=== PATIENT | male | born 1970 | race Two or more races ===

== ENCOUNTER 2020-11-25 20:19 | Inpatient (IN) | payer OTHER ==
[~2020-11-25] VITALS: Ht 170.2 cm; Wt 99.8 kg
[2020-11-25 21:13] LABS: HEMOGLOBIN 15.2 gm/dl (14.0-17.5); RED BLOOD COUNT 5.49 M/UL (4.20-5.50); WHITE BLOOD COUNT 7.5 K/UL (4.5-11.0)
[2020-11-25 21:34] LABS: BUN/CREATININE RATIO 14 (0-10)
[2020-11-26] MEDS ORDERED: LOSARTAN POTAS100 MG PO (00:52)
[2020-11-26] MEDS ORDERED: AMLODIPINE BESY10 MG PO (00:52)
[2020-11-26] MEDS ORDERED: LOPRESSOR 50 MG50 MG PO (00:53)
[2020-11-26 05:13] LABS: BUN/CREATININE RATIO 13 (0-10)
[2020-11-26 05:16] LABS: HEMOGLOBIN 15.2 gm/dl (14.0-17.5); RED BLOOD COUNT 5.57 M/UL (4.20-5.50)
[2020-11-27 04:09] LABS: HEMOGLOBIN 14.7 gm/dl (14.0-17.5); RED BLOOD COUNT 5.28 M/UL (4.20-5.50)
[2020-11-27 04:13] LABS: WHITE BLOOD COUNT 11.8 K/UL (4.5-11.0)
[2020-11-27 04:57] LABS: BUN/CREATININE RATIO 22 (0-10)
[2020-11-28 03:28] LABS: HEMOGLOBIN 15.9 gm/dl (14.0-17.5); RED BLOOD COUNT 5.75 M/UL (4.20-5.50); WHITE BLOOD COUNT 11.8 K/UL (4.5-11.0)
[2020-11-28 03:59] LABS: BUN/CREATININE RATIO 22 (0-10)
[2020-11-29 03:59] LABS: HEMOGLOBIN 15.1 gm/dl (14.0-17.5); RED BLOOD COUNT 5.49 M/UL (4.20-5.50); WHITE BLOOD COUNT 9.9 K/UL (4.5-11.0)
[2020-11-29 04:12] LABS: BUN/CREATININE RATIO 19 (0-10)
--- NOTE | 2020-11-29 07:48 | NUR ---
OXYGEN REMOVED FROM PT, PT AMBULATED TO BATHROOM AND BACK, ONCE RETURNING FROM BATHROOM BEFORE APPLYING O2 OXYGEN LEVEL 83%, O2 REAPPLIED ORDERED
[2020-11-30] MEDS ORDERED: DECADRON IM/I4 MG/ML PO (16:00)
[2020-11-30] MEDS ORDERED: CEFUROXIME250 MG PO (16:00)
[2020-11-30] MEDS ORDERED: DECADRON6 MG PO (16:09)
== END 2020-11-30 17:18 | disposition home or self-care (01) | DRG 871 ==
LOC: ER1 20:19 → MED SURG 4 11-26 00:18 → CDU 11-26 00:18 → MED SURG 4 11-26 01:07
PROVIDERS: Family Medicine; Internal Medicine; ADMIT Family Medicine
PROC: 8E0ZXY6 Isolation (ICD-10-PCS; principal; 2020-11-26)
PROC: XW033E5 Introduction of Remdesivir Anti-infective into Peripheral Vein, Percutaneous Approach, New Technology Group 5 (ICD-10-PCS; 2020-11-26)
PROC: XW13325 Transfusion of Convalescent Plasma (Nonautologous) into Peripheral Vein, Percutaneous Approach, New Technology Group 5 (ICD-10-PCS; 2020-11-26)
DX: A41.89 Other specified sepsis (principal); U07.1 COVID-19; J12.82 Pneumonia due to coronavirus disease 2019; J96.01 Acute respiratory failure with hypoxia; I10 Essential (primary) hypertension; E87.6 Hypokalemia; Z79.899 Other long term (current) drug therapy
CPT/HCPCS: 36415; 36600; 71045; 80048; 80053; 81001; 82803; 83605; 83735; 84100; 84132; 85025; 85652; 86140; 86850; 86900; 86901; 86927; 87040; 87086; 94760; 96365; 96366; 96367; 96372; 96375; 99285; J0696; J1100; J1650; J7030; U0002